=== PATIENT | female | born 1950 | race Caucasian/White ===

== ENCOUNTER 2017-10-13 14:10 | Emergency (ER) | payer OTHER, MEDICARE, BC ==
[2017-10-13 14:45] VITALS: BP 158/76
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
== END 2017-10-13 16:45 | disposition home or self-care (01) ==
LOC: LL.ED 14:10
DX: S82.64XA Nondisplaced fracture of lateral malleolus of right fibula, initial encounter for closed fracture (principal); E11.9 Type 2 diabetes mellitus without complications; I10 Essential (primary) hypertension; E78.00 Pure hypercholesterolemia, unspecified; E03.9 Hypothyroidism, unspecified; J45.909 Unspecified asthma, uncomplicated; E66.9 Obesity, unspecified; Z79.84 Long term (current) use of oral hypoglycemic drugs; Z88.5 Allergy status to narcotic agent; Z88.8 Allergy status to other drugs, medicaments and biological substances; Z79.899 Other long term (current) drug therapy; W00.9XXA Unspecified fall due to ice and snow, initial encounter
CPT/HCPCS: 29515; 73610-RT; 99283

== ENCOUNTER 2019-02-15 09:28 | Day surgery (SDC) | payer MEDICARE, BC ==
[~2019-02-15 09:28] MED LIST: Lactated Ringers 1,000 ML IV SCH; Sodium Chloride 0.9% 10 ML Syringe FLUSH PRN
[2019-02-15] MEDS ORDERED: fentaNYL 100 MCG/2 ML SDV ONE ×2 (09:38→09:40)
[2019-02-15] MEDS ORDERED: Midazolam 1 MG/ML 2 ML SDV ONE ×2 (09:38→09:40)
[2019-02-15] MEDS ORDERED: Propofol 200 MG/20 ML SDV ONE ×3 (09:38→11:09)
--- NOTE | 2019-02-15 11:39 | PCM.OPNOTE ---
- General Post-Op/Procedure Note Date of Surgery/Procedure: 02/15/19 Operative Procedure(s): EGD and Colonoscopy Findings: Normal EGD Enlarged int hemorrhoid Pre Op Diagnosis: GERD. FH Colon Ca, Hematochezia Post-Op Diagnosis: Same Anesthesia Technique: TONY Primary Surgeon: Reji Lagos Anesthesia Provider: Funmi Hoskins Complications: None Condition: Good
[2019-02-15 16:24] VITALS: BP 115/63
--- NOTE | 2019-02-16 08:44 | OR ---
Date of Procedure: 02/15/2019 PREOPERATIVE DIAGNOSES: 1. Gastroesophageal reflux disease. 2. Family history of colon cancer. POSTOPERATIVE DIAGNOSES: 1. Normal esophagogastroduodenoscopy. 2. Enlarged internal hemorrhoid. PROCEDURES: 1. Esophagogastroduodenoscopy. 2. Colonoscopy. ANESTHESIA: IV sedation. DESCRIPTION OF PROCEDURE: The patient was brought to the procedure room where she was placed on her left side and IV sedation administered. Oral bite block was placed and the upper endoscope advanced into the esophagus under direct vision without difficulty. Vocal cords were viewed and were normal. Scope was advanced to the 3rd portion of the duodenum. Duodenum and pylorus were normal. Antrum and body of the stomach were normal. Retroflexion reveals a normal appearing fundus. Squamocolumnar junction appears normal. There was no evidence of reflux esophagitis. Air was removed and the scope withdrawn through the remaining esophagus, which was normal. The patient tolerated this portion of the procedure well. Next, colonoscopy was performed after digital rectal exam was performed, which was normal. Colonoscope was inserted and advanced to the level of the cecum without difficulty. Cecal position was confirmed by identifying the appendiceal lumen and ileocecal valve. Prep was good and surfaces were well visualized. Upon withdrawing the scope, the ascending, transverse, and descending colon were normal in appearance. Sigmoid colon and rectum were normal. Retroflexion reveals an enlarged internal hemorrhoid with no active bleeding. Air was removed and the scope withdrawn. The patient tolerated the procedure well and returned to recovery in stable condition. Recommend routine colon screening again in 5 years. If her hemorrhoid causes further bleeding, this would be amenable to banding in the office. ERIC NORTON MD /[id number]
== END 2019-02-15 13:07 | disposition home or self-care (01) ==
LOC: LL.SDS 09:28
PROVIDERS: ATTEND Surgery
DX: Z12.11 Encounter for screening for malignant neoplasm of colon (principal); Z80.0 Family history of malignant neoplasm of digestive organs; K21.9 Gastro-esophageal reflux disease without esophagitis; K64.8 Other hemorrhoids; I10 Essential (primary) hypertension; E11.9 Type 2 diabetes mellitus without complications; E03.9 Hypothyroidism, unspecified; J45.909 Unspecified asthma, uncomplicated; E78.5 Hyperlipidemia, unspecified; M10.9 Gout, unspecified; G47.33 Obstructive sleep apnea (adult) (pediatric); F32.9 Major depressive disorder, single episode, unspecified; Z88.8 Allergy status to other drugs, medicaments and biological substances; Z88.1 Allergy status to other antibiotic agents; Z86.010 Personal history of colon polyps
CPT/HCPCS: 43235; 82962; G0105; J2250; J2704; J3010; J7120; 00813

== ENCOUNTER → 2022-08-08 | Emergency (ER) | payer MEDICARE ==
[~2022-08-08] MED LIST changes: +Ketorolac 10 MG Tab ONE; -Lactated Ringers 1,000 ML IV SCH; -Sodium Chloride 0.9% 10 ML Syringe FLUSH PRN
== END ==
LOC: LL.ED 19:45
DX: M25.511 Pain in right shoulder (principal); G89.29 Other chronic pain; I10 Essential (primary) hypertension
CPT/HCPCS: 99283; A9270-GY

== ENCOUNTER 2022-08-30 00:32 | Emergency (ER) | payer MEDICARE ==
[2022-08-30 00:51] VITALS: BP 149/71; PULSE 64
[2022-08-30] MEDS: Acetaminophen/Codeine 300-30 MG Tab PO ONE (01:15)
[2022-08-30] MEDS: Ketorolac 30 MG/ML SDV IM ONE (01:16)
== END 2022-08-30 01:45 | disposition home or self-care (01) ==
LOC: LL.ED 00:32
DX: M75.51 Bursitis of right shoulder (principal); I10 Essential (primary) hypertension; E11.9 Type 2 diabetes mellitus without complications; Z88.0 Allergy status to penicillin; Z88.6 Allergy status to analgesic agent; Z88.8 Allergy status to other drugs, medicaments and biological substances; Z79.899 Other long term (current) drug therapy; Z79.84 Long term (current) use of oral hypoglycemic drugs; Z90.49 Acquired absence of other specified parts of digestive tract
CPT/HCPCS: 96372; 99283; 99284; A9270-GY; J1885